=== PATIENT | female | born 1975 | race Caucasian/White ===

== ENCOUNTER 2016-11-13 15:34 | Emergency (ER) | payer OTHER ==
--- NOTE | 2016-11-13 16:34 | ED ORDER SUMMARY ---
..... Patient: TEODORA WEBB OrderSheet [facility] VisitID: [id number] [address] [place] [address] 40y, F Registration Date/Time: 11/13/2016 ORDER SHEET Weight: 78.4 kg Allergies: Penicillin, Sulfa Antibiotics GENERAL ORDERS: UA-Culture if indicated Urgent (15:55 11/13/2016 Josephine per protocol) (15:56 Josephine) MEDICATION ORDERS: IV FLUIDS: ORDER SHEET NOTES: [Electronically signed by Rosie Weston (16:41 11/13/2016)] [Electronically signed by Elen Mcintosh (16:43 11/13/2016)] [Electronically locked/signed by Rosie Weston (16:41 11/13/2016)]
--- NOTE | 2016-11-13 16:34 | ED CLINICAL REPORT ---
Clinical Report - Physicians/Mid Levels [facility] [address] [place] [address] 11/13/2016 15:35 Patient: TEODORA WEBB Time Seen: 15:59. Arrived- By private vehicle. Historian- patient. HISTORY OF PRESENT ILLNESS Chief Complaint: FLANK PAIN. At its maximum, severity described as severe. When seen in the E.D., severity described as severe. Modifying factors. Not worsened by anything. Not relieved by anything. It is described as "pain". No radiation. It is described as located in the left flank. This started about 2 days ago and is still present. No nausea, loss of appetite, vomiting or diarrhea. No additional abdominal pain. No recent travel. Similar symptoms previously: Occasionally. ( feels same as past bladder and kidney infections, so since pain was same wants urine checked for infection). Recent medical care: Not recently seen/assessed. REVIEW OF SYSTEMS No constipation, black stools, hematemesis, difficulty with urination or pain with urination. No urinary frequency, bloody stools, fever, chest pain or difficulty breathing. All systems otherwise negative, except as recorded above. PAST HISTORY See nurses notes. PROBLEMS: Pyelonephritis. Cellulitis. Lifestyle / Substance Problems. MRSA Infection. --15:48 Rosie Weston. ADDITIONAL SURGERIES: Appendectomy. --15:48 Rosie Weston. SOCIAL HISTORY Heavy tobacco smoker. Alcohol use. History of drug use: methamphetamines. No recent travel. Is a local resident. FAMILY HISTORY Negative. ADDITIONAL NOTES The nursing notes have been reviewed. PHYSICAL EXAM Vital Signs: 11/13/2016 15:47 BP: 156/97. HR: 57. RR: 18. O2 saturation: 98%. Temp: 98.2 F. Appearance: Alert. Oriented X3. No acute distress. Eyes: Pupils equal, round and reactive to light. Eyes normal inspection. Neck: Normal inspection. Neck supple. CVS: Normal heart rate and rhythm. Heart sounds normal. Pulses normal. Respiratory: No respiratory distress. Breath sounds normal. Chest nontender. Abdomen: Soft and nontender. Bowel sounds normal. No organomegaly. No mass. Back: Normal inspection. Skin: Skin warm and dry. Normal skin color. No rash. Normal skin turgor. Extremities: Extremities exhibit normal ROM. No lower extremity edema. Neuro: Oriented X 3. No motor deficit. No sensory deficit. LABS, X-RAYS, AND EKG Laboratory Tests: UA-Culture if indicated: (RONI: 11/13/2016 15:45) ( MsgRcvd 11/13/2016 16:30) IP Test Result Flag Units (Reference) URINE COLOR YELLOW URINE APPEARANCE CLEAR URINE GLUCOSE NEGATIVE (NEGATIVE) URINE BILIRUBIN NEGATIVE (NEGATIVE) URINE KETONE NEGATIVE (NEGATIVE) URINE SPECIFIC GRAVITY 1.010 (1.010-1.030) URINE PH 6.0 (5.0-8.0) URINE PROTEIN NEGATIVE (NEGATIVE) URINE UROBILINOGEN 0.2 EU/dL (0.2-1.0) URINE NITRITE NEGATIVE (NEGATIVE) URINE BLOOD TRACE-INTACT (NEGATIVE) URINE LEUK ESTERASE NEGATIVE (NEGATIVE) . Pulse Oximetry: 11/13/2016 15:47 O2 saturation: 98%. (FIO2 - room air). Interpretation: normal. PROGRESS AND PROCEDURES Patient counseled in person regarding the patient's stable condition, test results and diagnosis. 16:33. Old ED records reviewed. Differential Diagnosis: Other possible considerations: pyelo, uti, kidney stone, urosepsis, lumbar strain. Above considerations are based on history, physical exam, reassessment and laboratory data. Differential diagnosis was discussed with patient. Disposition: Discharged home in good and unchanged condition. Condition: good and stable and improved. CLINICAL IMPRESSION Acute left flank pain INSTRUCTIONS Warnings: GENERAL WARNINGS: Return or contact your physician immediately if your condition worsens or changes unexpectedly, if not improving as expected, or if other problems arise. SPECIFICALLY, return if you develop pain in the abdomen or pelvis, fever, the inability to keep fluids down, blood in vomitus, blood in diarrhea, fainting, lightheadedness or vaginal bleeding. Prescription Medications: Naprosyn 500 mg tablets: take 1 orally every 12 hours as needed for pain. Dispense twenty (20). No refills. Substitution is permissible. Follow-up: Follow up with your doctor in about three days even if well. Call for an appointment. Summary of care provided to patient. Understanding of the discharge instructions verbalized by patient. (Electronically signed by Elen Mcintosh A.R.N.P. 11/13/2016 16:43)
--- NOTE | 2016-11-13 16:34 | ED NURSING NOTES ---
Clinical Report - Nurses [facility] [address] [place] [address] 11/13/2016 15:35 Patient: TEODORA WEBB TRIAGE Triage time 1545. Acuity: LEVEL 3. Chief Complaint: LEFT-SIDED FLANK PAIN. Alert. No acute distress. --15:51 Rosie Weston 15:47 11/13/16. BP: 156/97. HR: 57. RR: 18. O2 saturation: 98%. Temp: 98.2 F. Pain level now 8/10. --15:51 Rosie Weston. Weight: 78.4 kg. Height/Length: 67 inches. BMI: 27.1. --15:47 Rosie Weston. Medications None. --15:48 Rosie Weston. Allergies Penicillin. --15:48 Rosie Weston Sulfa Antibiotics. --15:48 Rosie Weston. History Arrived by private vehicle. Historian: patient. Unaccompanied. Onset. (2 days ago). 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 SOCIAL HX: Heavy tobacco smoker (cigarette)- less than 1 pack per day. Occasional alcohol use. History of heavy drug use: methamphetamines. --15:51 Rosie Weston. PROBLEMS: Pyelonephritis. Cellulitis. Lifestyle / Substance Problems. MRSA Infection. --15:48 Rosie Weston. ADDITIONAL SURGERIES: Appendectomy. --15:48 Rosie Weston. Interventions ID band on patient. To treatment room. --15:51 Rosie Weston. PHYSICAL ASSESSMENT Ambulatory to room. Patient gowned. ( Sts long hx of pyelo). GENERAL / NEURO / PSYCH: Alert. Oriented X 4. Appears in distress. HEENT: Mucous membranes are pink. RESPIRATORY: Respirations not labored. Breath sounds within normal limits. CVS: Normal heart rate and rhythm. Capillary refill less than 2 seconds. GI / : Abdomen soft and nontender. Bowel sounds within normal limits. SKIN: Skin is warm and dry. --15:54 Rosie Weston. NURSING PROGRESS NOTES Patient gowned. Reassurance given. Call light placed in reach. Bed placed in lowest position. Brakes of bed on. Patient ready for evaluation- chart flagged. --15:55 Rosie Weston. DISPOSITION / DISCHARGE Departure time: 1640. Condition at departure: unchanged and stable. No learning barriers present. Discharge instructions provided and reviewed with the patient. Reviewed medication(s). Patient verbalized understanding. Written instructions provided in Mozambican. The patient was discharged by the nurse practitioner. She was discharged home and unaccompanied at time of discharge. She left the Emergency Department ambulatory and via private vehicle. Patient driving. --16:41 Rosie Weston. Locked/Released at 11/13/2016 16:41 by Rosie Weston,
--- NOTE | 2016-11-13 16:34 | ED ORDER SUMMARY ---
..... Patient: TEODORA WEBB OrderSheet [facility] VisitID: [id number] [address] [place] [address] 40y, F Registration Date/Time: 11/13/2016 ORDER SHEET Weight: 78.4 kg Allergies: Penicillin, Sulfa Antibiotics GENERAL ORDERS: UA-Culture if indicated Urgent (15:55 11/13/2016 Josephine per protocol) (15:56 Josephine) MEDICATION ORDERS: IV FLUIDS: ORDER SHEET NOTES: [Electronically signed by Rosie Weston (16:41 11/13/2016)] [Electronically signed by Elen Mcintosh (16:43 11/13/2016)] [Electronically locked/signed by Rosie Weston (16:41 11/13/2016)]
--- NOTE | 2016-11-13 16:34 | ED NURSING NOTES ---
Clinical Report - Nurses [facility] [address] [place] [address] 11/13/2016 15:35 Patient: TEODORA WEBB TRIAGE Triage time 1545. Acuity: LEVEL 3. Chief Complaint: LEFT-SIDED FLANK PAIN. Alert. No acute distress. --15:51 Rosie Weston 15:47 11/13/16. BP: 156/97. HR: 57. RR: 18. O2 saturation: 98%. Temp: 98.2 F. Pain level now 8/10. --15:51 Rosie Weston. Weight: 78.4 kg. Height/Length: 67 inches. BMI: 27.1. --15:47 Rosie Weston. Medications None. --15:48 Rosie Wseton. Allergies Penicillin. --15:48 Rosie Weston Sulfa Antibiotics. --15:48 Rosie Weston. History Arrived by private vehicle. Historian: patient. Unaccompanied. Onset. (2 days ago). 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 SOCIAL HX: Heavy tobacco smoker (cigarette)- less than 1 pack per day. Occasional alcohol use. History of heavy drug use: methamphetamines. --15:51 Rosie Weston. PROBLEMS: Pyelonephritis. Cellulitis. Lifestyle / Substance Problems. MRSA Infection. --15:48 Rosie Weston. ADDITIONAL SURGERIES: Appendectomy. --15:48 Rosie Weston. Interventions ID band on patient. To treatment room. --15:51 Rosie Weston. PHYSICAL ASSESSMENT Ambulatory to room. Patient gowned. ( Sts long hx of pyelo). GENERAL / NEURO / PSYCH: Alert. Oriented X 4. Appears in distress. HEENT: Mucous membranes are pink. RESPIRATORY: Respirations not labored. Breath sounds within normal limits. CVS: Normal heart rate and rhythm. Capillary refill less than 2 seconds. GI / : Abdomen soft and nontender. Bowel sounds within normal limits. SKIN: Skin is warm and dry. --15:54 Rosie Weston. NURSING PROGRESS NOTES Patient gowned. Reassurance given. Call light placed in reach. Bed placed in lowest position. Brakes of bed on. Patient ready for evaluation- chart flagged. --15:55 Rosie Weston. DISPOSITION / DISCHARGE Departure time: 1640. Condition at departure: unchanged and stable. No learning barriers present. Discharge instructions provided and reviewed with the patient. Reviewed medication(s). Patient verbalized understanding. Written instructions provided in Micronesian. The patient was discharged by the nurse practitioner. She was discharged home and unaccompanied at time of discharge. She left the Emergency Department ambulatory and via private vehicle. Patient driving. --16:41 Rosie Weston. Locked/Released at 11/13/2016 16:41 by Rosie Weston,
--- NOTE | 2016-11-13 16:43 | ED MAR SUMMARY ---
..... Medication Administration Record [facility] [address] [place], [place] [id number] Patient: TEODORA WEBB Visit ID: [id number] 40y, F Weight: 78.4 kg Height/Length: 67 in BMI: 27.1 ALLERGIES: Sulfa Antibiotics, Penicillin
--- NOTE | 2016-11-13 16:43 | ED MAR SUMMARY ---
..... Medication Administration Record [facility] [address] [place], [place] [id number] Patient: TEODORA WEBB Visit ID: [id number] 40y, F Weight: 78.4 kg Height/Length: 67 in BMI: 27.1 ALLERGIES: Sulfa Antibiotics, Penicillin
--- NOTE | 2016-11-13 16:43 | ED DISCHARGE INSTRUCTIONS ---
Patient: TEODORA WEBB General Instructions [facility] VisitID: [id number] [place] [address] 40y, F Registration Date/Time: 11/13/2016 Acute left flank pain INSTRUCTIONS Warnings: GENERAL WARNINGS: Return or contact your physician immediately if your condition worsens or changes unexpectedly, if not improving as expected, or if other problems arise. SPECIFICALLY, return if you develop pain in the abdomen or pelvis, fever, the inability to keep fluids down, blood in vomitus, blood in diarrhea, fainting, lightheadedness or vaginal bleeding. Prescription Medications: Naprosyn 500 mg tablets: take 1 orally every 12 hours as needed for pain. Dispense twenty (20). No refills. Substitution is permissible. Follow-up: Follow up with your doctor in about three days even if well. Call for an appointment. Summary of care provided to patient. Understanding of the discharge instructions verbalized by patient. ADDITIONAL INFORMATION Flank Pain[Uncertain Cause] The flank is the area between the upper abdomen and the back. Pain here is often related to the kidneyan infection or a kidney stone. Other causes of flank pain include spinal arthritis, pinched nerve from a disk injury, back muscle strain or spasm. The cause of your flank pain is not certain and further tests may be needed. Home Care: You may use acetaminophen (Tylenol) or ibuprofen (Motrin, Advil) to control pain, unless another medicine was prescribed. [NOTE: If you have chronic liver or kidney disease or ever had a stomach ulcer or GI bleeding, talk with your doctor before using these medicines.] If the cause of your pain is coming from the muscles, ice or heat may give relief. During the first two days after injury, apply an ICE PACK to the painful area for 20 minutes every 2-4 hours. This will reduce swelling and pain. HEAT (hot shower, hot bath or heating pad) works well for muscle spasm. You can start with ice, then switch to heat after two days. Some patients feel best alternating ice and heat treatments. Use the one method that feels the best to you. Follow Up with your doctor or as advised by our staff for further evaluation if your symptoms are not improving over the next few days. Return Promptly or contact your doctor if any of the following occur: Repeated vomiting Fever of 100.4F (38C) or higher, or as directed by your healthcare provider Increasing flank pain Pain that spreads to the front of the abdomen Dizziness, weakness or fainting Blood in your urine Burning with urination or frequent urination Increasing pain in the leg Numbness or weakness in the leg Naproxen Sodium Oral tablet What is this medicine? NAPROXEN (na PROX en) is a non-steroidal anti-inflammatory drug (NSAID). It is used to reduce swelling and to treat pain. This medicine may be used for dental pain, headache, or painful monthly periods. It is also used for painful joint and muscular problems such as arthritis, tendinitis, bursitis, and gout. How should I use this medicine? Take this medicine by mouth with a glass of water. Follow the directions on the prescription label. Take it with food if your stomach gets upset. Try to not lie down for at least 10 minutes after you take it. Take your medicine at regular intervals. Do not take your medicine more often than directed. Long-term, continuous use may increase the risk of heart attack or stroke. A special MedGuide will be given to you by the pharmacist with each prescription and refill. Be sure to read this information carefully each time. Talk to your slubber runner regarding the use of this medicine in children. Special care may be needed. What side effects may I notice from receiving this medicine? Side effects that you should report to your doctor or health resident care associate as soon as possible: black or bloody stools, blood in the urine or vomit blurred vision chest pain difficulty breathing or wheezing nausea or vomiting severe stomach pain skin rash, skin redness, blistering or peeling skin, hives, or itching slurred speech or weakness on one side of the body swelling of eyelids, throat, lips unexplained weight gain or swelling unusually weak or tired yellowing of eyes or skin Side effects that usually do not require medical attention (report to your doctor or health resident care associate if they continue or are bothersome): constipation headache heartburn What may interact with this medicine? alcohol aspirin cidofovir diuretics lithium methotrexate other drugs for inflammation like ketorolac or prednisone pemetrexed probenecid warfarin What if I miss a dose? If you miss a dose, take it as soon as you can. If it is almost time for your next dose, take only that dose. Do not take double or extra doses. Where should I keep my medicine? Keep out of the reach of children. Store at room temperature between 15 and 30 degrees C (59 and 86 degrees F). Keep container tightly closed. Throw away any unused medicine after the expiration date. What should I tell my health care provider before I take this medicine? They need to know if you have any of these conditions: asthma cigarette smoker drink more than 3 alcohol containing drinks a day heart disease or circulation problems such as heart failure or leg edema (fluid retention) high blood pressure kidney disease liver disease stomach bleeding or ulcers an unusual or allergic reaction to naproxen, aspirin, other NSAIDs, other medicines, foods, dyes, or preservatives or trying to get breast-feeding What should I watch for while using this medicine? Tell your doctor or health resident care associate if your pain does not get better. Talk to your doctor before taking another medicine for pain. Do not treat yourself. This medicine does not prevent heart attack or stroke. In fact, this medicine may increase the chance of a heart attack or stroke. The chance may increase with longer use of this medicine and in people who have heart disease. If you take aspirin to prevent heart attack or stroke, talk with your doctor or health resident care associate. Do not take other medicines that contain aspirin, ibuprofen, or naproxen with this medicine. Side effects such as stomach upset, nausea, or ulcers may be more likely to occur. Many medicines available without a prescription should not be taken with this medicine. This medicine can cause ulcers and bleeding in the stomach and intestines at any time during treatment. Do not smoke cigarettes or drink alcohol. These increase irritation to your stomach and can make it more susceptible to damage from this medicine. Ulcers and bleeding can happen without warning symptoms and can cause . You may get drowsy or dizzy. Do not drive, use machinery, or do anything that needs mental alertness until you know how this medicine affects you. Do not stand or sit up quickly, especially if you are an older patient. This reduces the risk of dizzy or fainting spells. This medicine can cause you to bleed more easily. Try to avoid damage to your teeth and gums when you brush or floss your teeth. You have been given the following additional information: Flank Pain, Uncertain Cause Naproxen Sodium Oral tablet (Electronically signed by Elen Mcintosh A.R.N.PRonaldo 11/13/2016 16:43)
--- NOTE | 2016-11-13 16:43 | ED MED RECONCILIATION SUMMARY ---
Patient: TEODORA WEBB Medication Reconciliation Report [facility] VisitID: [id number] [address] [place] [address] 40y, F Registration Date/Time: 11/13/2016 Weight: 78.4 kg Height/Length: 67 in. BMI: 27.1 ALLERGIES: Penicillin, Sulfa Antibiotics The patient's Home Medications are listed below: NONE. The source(s) of the original Home Medication information: Not obtained. The following Medications were given to the patient in the Emergency Department: None. The following Medications were prescribed to the patient: Naprosyn 500 mg tablets: take 1 orally every 12 hours as needed for pain. Dispense twenty (20). No refills. Substitution is permissible. -- Elen Mcintosh A.R.N.P.
--- NOTE | 2016-11-13 16:43 | ED DISCHARGE INSTRUCTIONS ---
Patient: TEODORA WEBB General Instructions [facility] VisitID: [id number] [place] [address] 40y, F Registration Date/Time: 11/13/2016 Acute left flank pain INSTRUCTIONS Warnings: GENERAL WARNINGS: Return or contact your physician immediately if your condition worsens or changes unexpectedly, if not improving as expected, or if other problems arise. SPECIFICALLY, return if you develop pain in the abdomen or pelvis, fever, the inability to keep fluids down, blood in vomitus, blood in diarrhea, fainting, lightheadedness or vaginal bleeding. Prescription Medications: Naprosyn 500 mg tablets: take 1 orally every 12 hours as needed for pain. Dispense twenty (20). No refills. Substitution is permissible. Follow-up: Follow up with your doctor in about three days even if well. Call for an appointment. Summary of care provided to patient. Understanding of the discharge instructions verbalized by patient. ADDITIONAL INFORMATION Flank Pain[Uncertain Cause] The flank is the area between the upper abdomen and the back. Pain here is often related to the kidneyan infection or a kidney stone. Other causes of flank pain include spinal arthritis, pinched nerve from a disk injury, back muscle strain or spasm. The cause of your flank pain is not certain and further tests may be needed. Home Care: You may use acetaminophen (Tylenol) or ibuprofen (Motrin, Advil) to control pain, unless another medicine was prescribed. [NOTE: If you have chronic liver or kidney disease or ever had a stomach ulcer or GI bleeding, talk with your doctor before using these medicines.] If the cause of your pain is coming from the muscles, ice or heat may give relief. During the first two days after injury, apply an ICE PACK to the painful area for 20 minutes every 2-4 hours. This will reduce swelling and pain. HEAT (hot shower, hot bath or heating pad) works well for muscle spasm. You can start with ice, then switch to heat after two days. Some patients feel best alternating ice and heat treatments. Use the one method that feels the best to you. Follow Up with your doctor or as advised by our staff for further evaluation if your symptoms are not improving over the next few days. Return Promptly or contact your doctor if any of the following occur: Repeated vomiting Fever of 100.4F (38C) or higher, or as directed by your healthcare provider Increasing flank pain Pain that spreads to the front of the abdomen Dizziness, weakness or fainting Blood in your urine Burning with urination or frequent urination Increasing pain in the leg Numbness or weakness in the leg Naproxen Sodium Oral tablet What is this medicine? NAPROXEN (na PROX en) is a non-steroidal anti-inflammatory drug (NSAID). It is used to reduce swelling and to treat pain. This medicine may be used for dental pain, headache, or painful monthly periods. It is also used for painful joint and muscular problems such as arthritis, tendinitis, bursitis, and gout. How should I use this medicine? Take this medicine by mouth with a glass of water. Follow the directions on the prescription label. Take it with food if your stomach gets upset. Try to not lie down for at least 10 minutes after you take it. Take your medicine at regular intervals. Do not take your medicine more often than directed. Long-term, continuous use may increase the risk of heart attack or stroke. A special MedGuide will be given to you by the pharmacist with each prescription and refill. Be sure to read this information carefully each time. Talk to your process line operator regarding the use of this medicine in children. Special care may be needed. What side effects may I notice from receiving this medicine? Side effects that you should report to your doctor or health day care home provider as soon as possible: black or bloody stools, blood in the urine or vomit blurred vision chest pain difficulty breathing or wheezing nausea or vomiting severe stomach pain skin rash, skin redness, blistering or peeling skin, hives, or itching slurred speech or weakness on one side of the body swelling of eyelids, throat, lips unexplained weight gain or swelling unusually weak or tired yellowing of eyes or skin Side effects that usually do not require medical attention (report to your doctor or health day care home provider if they continue or are bothersome): constipation headache heartburn What may interact with this medicine? alcohol aspirin cidofovir diuretics lithium methotrexate other drugs for inflammation like ketorolac or prednisone pemetrexed probenecid warfarin What if I miss a dose? If you miss a dose, take it as soon as you can. If it is almost time for your next dose, take only that dose. Do not take double or extra doses. Where should I keep my medicine? Keep out of the reach of children. Store at room temperature between 15 and 30 degrees C (59 and 86 degrees F). Keep container tightly closed. Throw away any unused medicine after the expiration date. What should I tell my health care provider before I take this medicine? They need to know if you have any of these conditions: asthma cigarette smoker drink more than 3 alcohol containing drinks a day heart disease or circulation problems such as heart failure or leg edema (fluid retention) high blood pressure kidney disease liver disease stomach bleeding or ulcers an unusual or allergic reaction to naproxen, aspirin, other NSAIDs, other medicines, foods, dyes, or preservatives or trying to get breast-feeding What should I watch for while using this medicine? Tell your doctor or health day care home provider if your pain does not get better. Talk to your doctor before taking another medicine for pain. Do not treat yourself. This medicine does not prevent heart attack or stroke. In fact, this medicine may increase the chance of a heart attack or stroke. The chance may increase with longer use of this medicine and in people who have heart disease. If you take aspirin to prevent heart attack or stroke, talk with your doctor or health day care home provider. Do not take other medicines that contain aspirin, ibuprofen, or naproxen with this medicine. Side effects such as stomach upset, nausea, or ulcers may be more likely to occur. Many medicines available without a prescription should not be taken with this medicine. This medicine can cause ulcers and bleeding in the stomach and intestines at any time during treatment. Do not smoke cigarettes or drink alcohol. These increase irritation to your stomach and can make it more susceptible to damage from this medicine. Ulcers and bleeding can happen without warning symptoms and can cause . You may get drowsy or dizzy. Do not drive, use machinery, or do anything that needs mental alertness until you know how this medicine affects you. Do not stand or sit up quickly, especially if you are an older patient. This reduces the risk of dizzy or fainting spells. This medicine can cause you to bleed more easily. Try to avoid damage to your teeth and gums when you brush or floss your teeth. You have been given the following additional information: Flank Pain, Uncertain Cause Naproxen Sodium Oral tablet (Electronically signed by Elen Mcintosh A.R.N.PRonaldo 11/13/2016 16:43)
--- NOTE | 2016-11-13 16:43 | ED MED RECONCILIATION SUMMARY ---
Patient: TEODORA WEBB Medication Reconciliation Report [facility] VisitID: [id number] [address] [place] [address] 40y, F Registration Date/Time: 11/13/2016 Weight: 78.4 kg Height/Length: 67 in. BMI: 27.1 ALLERGIES: Penicillin, Sulfa Antibiotics The patient's Home Medications are listed below: NONE. The source(s) of the original Home Medication information: Not obtained. The following Medications were given to the patient in the Emergency Department: None. The following Medications were prescribed to the patient: Naprosyn 500 mg tablets: take 1 orally every 12 hours as needed for pain. Dispense twenty (20). No refills. Substitution is permissible. -- Elen Mcintosh A.R.N.P.
== END 2016-11-13 16:40 | disposition home or self-care (01) ==
LOC: ED SRH 15:34
DX: R10.32 Left lower quadrant pain (principal); F17.210 Nicotine dependence, cigarettes, uncomplicated
CPT/HCPCS: 90004